=== PATIENT | female | born 1980 | race Two or more races ===

== ENCOUNTER 2024-02-19 17:35 | Emergency (ER) | payer SELFPAY ==
[~2024-02-19] VITALS: Ht 154.9 cm; Wt 77.1 kg
[2024-02-19] MEDS ORDERED: ACETAMINOPHEN 325 MG TABLET ONE (18:19)
[2024-02-19] MEDS: ACETAMINOPHEN 325 MG TABLET PO ONE (18:27)
[2024-02-19 18:45] LABS: BASOPHILS % (AUTO) 0.4 % (0.0-2.0); EOSINOPHILS % (AUTO) 0.1 % (0.0-6.0); HEMATOCRIT 39 % (33-45); LYMPHOCYTES # (AUTO) 0.2 K/uL (0.8-4.8); LYMPHOCYTES % (AUTO) 3.3 % (20.0-44.0); MEAN CORPUSCULAR HEMOGLOBIN 27 PG (26.0-33.0); MEAN CORPUSCULAR HGB CONC 33 g/dl (31.0-36.0); MEAN CORPUSCULAR VOLUME 82 fL (82-100); MONOCYTES # (AUTO) 0.2 K/uL (0.1-1.30); NEUTROPHILS # (AUTO) 6.6 K/uL (1.8-8.9); NEUTROPHILS % (AUTO) 93.2 % (43.0-81.0); PLATELET COUNT (AUTO) 166 K/uL (150-450); RED CELL DISTRIBUTION WIDTH 16.2 % (11.5-15.0); WHITE BLOOD COUNT (AUTO) 7.1 K/uL (4.3-11.0)
[2024-02-19 18:51] LABS: CALCIUM, SERUM 8.8 mg/dL (8.5-10.1); CREATININE 0.9 mg/dL (0.6-1.3); POTASSIUM 3.4 mmol/L (3.5-5.1)
[2024-02-19] MEDS ORDERED: POTASSIUM CHLORIDE 20 MEQ TAB.PRT.SR PO ONE (19:00)
[2024-02-19] MEDS ORDERED: POTASSIUM CHLORIDE 20 MEQ POWDER PACKET ONE (19:16)
[2024-02-19] MEDS: POTASSIUM CHLORIDE 20 MEQ POWDER PACKET PO ONE (19:19)
[2024-02-19] MEDS ORDERED: IBUPROFEN 600 MG TABLET ONE (20:43)
[2024-02-19] MEDS: IBUPROFEN 600 MG TABLET PO ONE (20:43)
[2024-02-19 21:19] VITALS: BP 95/59; TEMP 100.7; O2SAT 97
== END 2024-02-19 21:21 | disposition home or self-care (01) ==
LOC: ER 17:35
DX: U07.1 COVID-19 (principal); J45.909 Unspecified asthma, uncomplicated; K21.9 Gastro-esophageal reflux disease without esophagitis; Z86.79 Personal history of other diseases of the circulatory system; Z88.2 Allergy status to sulfonamides; Z88.8 Allergy status to other drugs, medicaments and biological substances
CPT/HCPCS: 36415; 71045-TC; 80048-TC; 85025-TC